=== PATIENT | female | born 1965 | race Caucasian/White ===

== ENCOUNTER → 2021-12-18 | Outpatient (CLI) | payer OTHER ==
[~2021-12-18] MED LIST: FOLTTAB9 PO; ISOVUE-370 76% 100ML VIAL As Ordered ONE; SUMA100T2 PO; TRIBTAB PO; VIT1TABL22 PO
== END ==
LOC: M RAD 11:25
PROVIDERS: ATTEND Specialist
DX: C83.30 Diffuse large B-cell lymphoma, unspecified site (principal); R91.1 Solitary pulmonary nodule; K76.89 Other specified diseases of liver
CPT/HCPCS: 70491; 71260; 74177; Q9967

== ENCOUNTER → 2022-01-16 | Outpatient (CLI) | payer OTHER ==
[~2022-01-16] MED LIST changes: +DIFL50TA PO; -ISOVUE-370 76% 100ML VIAL As Ordered ONE; +LIDOCAINE 1% MDV 20ML VIAL As Ordered ONE
[2022-01-16 11:40] VITALS: BP 157/83
== END ==
LOC: M IRPRO 10:27
PROVIDERS: ATTEND Specialist
DX: E07.9 Disorder of thyroid, unspecified (principal); C85.10 Unspecified B-cell lymphoma, unspecified site

== ENCOUNTER → 2022-03-09 | Outpatient (CLI) | payer OTHER ==
[~2022-03-09] MED LIST changes: +AMOX250C3 PO; -LIDOCAINE 1% MDV 20ML VIAL As Ordered ONE; +VITA100093
== END ==
LOC: M PLAIMG 10:46
PROVIDERS: ATTEND Otolaryngology
DX: H92.03 Otalgia, bilateral (principal)

== ENCOUNTER → 2022-04-07 | Outpatient (CLI) | payer OTHER | LOC: M RAD 16:35 | PROVIDERS: ATTEND Internal Medicine Endocrinology, Diabetes & Metabolism | DX: E05.00 Thyrotoxicosis with diffuse goiter without thyrotoxic crisis or storm (principal) ==

== ENCOUNTER → 2022-04-15 | Outpatient (CLI) | payer OTHER ==
[~2022-04-15] MED LIST changes: +OLME-4 PO; -TRIBTAB PO
[2022-04-15 17:02] LABS: FREE T4 2.27 NG/DL (0.76-1.46); THYROID STIMULATING HORMONE < 0.005 uIU/ML (0.358-3.740)
[2022-04-15 18:10] LABS: TOTAL T3 313.3 NG/DL (60.0-181.0)
== END ==
LOC: M LAB 15:51
PROVIDERS: ATTEND Internal Medicine Endocrinology, Diabetes & Metabolism
DX: E05.90 Thyrotoxicosis, unspecified without thyrotoxic crisis or storm (principal)

== ENCOUNTER → 2022-04-20 | Outpatient (CLI) | payer OTHER | LOC: M PLARAD 08:06 | PROVIDERS: ATTEND Internal Medicine Medical Oncology | DX: C83.85 Other non-follicular lymphoma, lymph nodes of inguinal region and lower limb (principal) | CPT/HCPCS: 78815; A9552 ==

== ENCOUNTER 2022-04-30 08:30 | Day surgery (SDC) | payer OTHER ==
[~2022-04-30] VITALS: Ht 157.5 cm; Wt 65.8 kg
[~2022-04-30 08:30] MED LIST changes: +dexameTHASONE 4 MG/ML 1ML VIAL (J1100 PER 1MG) IV ONE
[2022-04-30] MEDS ORDERED: MIDAZOLAM INJ 2MG/2ML VIAL (J2250 PER 1MG) As Ordered ONE (11:11)
[2022-04-30] MEDS ORDERED: LIDOCAINE 2% 100MG/5ML SDV (FOR ANES.) As Ordered ONE (11:11)
[2022-04-30] MEDS ORDERED: fentaNYL 100 MCG/2 ML INJECTION As Ordered ONE ×2 (11:12→13:08)
[2022-04-30] MEDS ORDERED: propofoL 200 MG/20 ML VIAL As Ordered ONE ×2 (11:13→13:10)
[2022-04-30] MEDS ORDERED: dexameTHASONE 4 MG/ML 1ML VIAL (J1100 PER 1MG) As Ordered ONE (11:13)
[2022-04-30] MEDS ORDERED: CIPRODEX OTIC SUSP 7.5ML As Ordered ONE (11:39)
[2022-04-30] MEDS ORDERED: NEOSPORIN TOP OINT 15GM As Ordered ONE (11:40)
[2022-04-30] MEDS ORDERED: PHENYLEPHRINE 0.5% NASAL SPRAY 15 ML As Ordered ONE (11:45)
[2022-04-30] MEDS ORDERED: ACETAMINOPHEN 1000MG 100ML IV BTL (OFIRMEV) (J0131 PER 10MG) As Ordered ONE (12:00)
[2022-04-30] MEDS ORDERED: PHENYLephrine 500MCG 5ML (100MCG/ML) SYRINGE As Ordered ONE (12:17)
[2022-04-30] MEDS ORDERED: ONDANSETRON 4MG 2ML VIAL As Ordered ONE (12:21)
[2022-04-30] MEDS ORDERED: SUGAMMADEX SODIUM 500 MG/5 ML VIAL (BRIDION) As Ordered ONE (12:21)
[2022-04-30] MEDS ORDERED: ePHEDrine SULFATE 25 MG/5 ML(5MG/ML) SYRINGE As Ordered ONE (12:33)
[2022-04-30] MEDS ORDERED: METHYLENE BLUE 0.5% (5MG/ML) 10 ML AMP (PROVAYBLUE) As Ordered ONE (12:33)
[2022-04-30] MEDS ORDERED: EPINEPHrine 1MG/ML INJ 30ML MD-VIAL As Ordered ONE (12:33)
[2022-04-30] MEDS ORDERED: ROCURONIUM BROMIDE 50 MG/5 ML VIAL As Ordered ONE (12:34)
[2022-04-30] MEDS ORDERED: SUCCINYLCHOLINE 100 MG/5 ML SYRINGE (J0330) As Ordered ONE (12:35)
[2022-04-30] MEDS ORDERED: LIDOCAINE W/EPINEPHRINE 1% 20ML VIAL As Ordered ONE (13:09)
[2022-04-30] MEDS ORDERED: ONDANSETRON 4MG 2ML VIAL IV PRN (13:30)
[2022-04-30] MEDS ORDERED: oxyCODONE 5MG TAB PO PRN (13:30)
[2022-04-30] MEDS ORDERED: LR 1,000 ML IV SCH (13:30)
[2022-04-30] MEDS ORDERED: fentaNYL 100 MCG/2 ML INJECTION IV PRN (13:30)
[2022-04-30] MEDS ORDERED: HYDROMORPHONE HCL 0.5 MG/ 0.5 ML SYRINGE (J1170 PER 1) IV PRN (13:30)
[2022-04-30 14:30] VITALS: BP 140/71
== END 2022-04-30 15:06 | disposition home or self-care (01) ==
LOC: M SDC 08:30
PROVIDERS: ATTEND Otolaryngology
DX: H69.83 Other specified disorders of Eustachian tube, bilateral (principal); R51.9 Headache, unspecified; Z85.71 Personal history of Hodgkin lymphoma; Z92.21 Personal history of antineoplastic chemotherapy; E05.90 Thyrotoxicosis, unspecified without thyrotoxic crisis or storm; F17.210 Nicotine dependence, cigarettes, uncomplicated; Z86.718 Personal history of other venous thrombosis and embolism; Z79.899 Other long term (current) drug therapy
CPT/HCPCS: 69436; 69799; J0131; J0171; J0330; J1100; J2250; J2370; J2405; J3010; Q9968